=== PATIENT | male | born 1975 | race Caucasian/White ===

== ENCOUNTER 2021-08-25 05:04 | Inpatient (IN) | payer BC ==
[~2021-08-25] VITALS: Ht 185.4 cm; Wt 147.4 kg
[~2021-08-25 05:04] MED LIST: DEXAMETHASONE4 MG PO
[2021-08-25 05:40] LABS: HEMOGLOBIN 16.8 gm/dl (14.0-17.5); RED BLOOD COUNT 5.54 M/UL (4.20-5.50); WHITE BLOOD COUNT 24.2 K/UL (4.5-11.0)
[2021-08-25 06:02] LABS: BUN/CREATININE RATIO 33 (0-10)
[2021-08-25] MEDS ORDERED: ASPIRIN EC81 MG PO (10:59)
[2021-08-25] MEDS ORDERED: DILTIAZEM ER420 M1 PO (11:02)
[2021-08-25] MEDS ORDERED: LOSARTAN POTAS100 MG PO (11:02)
[2021-08-26 11:21] LABS: HEMOGLOBIN 15.7 gm/dl (14.0-17.5); RED BLOOD COUNT 5.18 M/UL (4.20-5.50); WHITE BLOOD COUNT 20.5 K/UL (4.5-11.0)
[2021-08-26 11:41] LABS: BUN/CREATININE RATIO 34 (0-10)
[2021-08-27 09:42] LABS: HEMOGLOBIN 15.9 gm/dl (14.0-17.5); RED BLOOD COUNT 5.33 M/UL (4.20-5.50); WHITE BLOOD COUNT 18.6 K/UL (4.5-11.0)
[2021-08-27 10:13] LABS: BUN/CREATININE RATIO 37 (0-10)
== END 2021-08-28 09:26 | disposition short-term general hospital (02) | DRG 177 ==
LOC: ER1 05:04 → PROG CARE 08:21 → MED SURG 4 08:21 → CDU 08:21 → MED SURG 4 16:19 → PROG CARE 08-27 13:58
PROVIDERS: Physician Assistant; ADMIT Internal Medicine
PROC: XW033E5 Introduction of Remdesivir Anti-infective into Peripheral Vein, Percutaneous Approach, New Technology Group 5 (ICD-10-PCS; 2021-08-25)
PROC: 3E0333Z Introduction of Anti-inflammatory into Peripheral Vein, Percutaneous Approach (ICD-10-PCS; 2021-08-25)
PROC: 5A0935A Assistance with Respiratory Ventilation, Less than 24 Consecutive Hours, High Flow/Velocity Cannula (ICD-10-PCS; 2021-08-26)
PROC: 5A09357 Assistance with Respiratory Ventilation, Less than 24 Consecutive Hours, Continuous Positive Airway Pressure (ICD-10-PCS; 2021-08-27)
PROC: 8E0ZXY6 Isolation (ICD-10-PCS; principal; 2021-08-28)
DX: U07.1 COVID-19 (principal); J12.82 Pneumonia due to coronavirus disease 2019; J80 Acute respiratory distress syndrome; Z68.41 Body mass index [BMI] 40.0-44.9, adult; I10 Essential (primary) hypertension; E66.9 Obesity, unspecified; G47.33 Obstructive sleep apnea (adult) (pediatric); M10.9 Gout, unspecified; M19.09 Primary osteoarthritis, other specified site; M47.899 Other spondylosis, site unspecified; Z86.73 Personal history of transient ischemic attack (TIA), and cerebral infarction without residual deficits; Z82.0 Family history of epilepsy and other diseases of the nervous system; Z79.82 Long term (current) use of aspirin; Z79.01 Long term (current) use of anticoagulants; Z99.81 Dependence on supplemental oxygen; Z82.3 Family history of stroke; Z82.49 Family history of ischemic heart disease and other diseases of the circulatory system
CPT/HCPCS: 36415; 36600; 71045; 80048; 80053; 82550; 82553; 82728; 82803; 83605; 83615; 83874; 83880; 84484; 85025; 85379; 85652; 86140; 94640; 94660; 94664; 94760; 99285; J0360; J0456; J0696; J1100; J1650; J7030; U0002